=== PATIENT | female | born 1965 | race Caucasian/White ===

== ENCOUNTER 2016-06-23 00:06 | Emergency (ER) | payer BC ==
[~2016-06-23] VITALS: Ht 165.1 cm; Wt 72.6 kg
[~2016-06-23 00:06] MED LIST: 'PARAFON FORTE500 M1 PO; AMOXICILLIN500 M2 PO; AUGMENTIN 875875 MG PO; BIAXIN500 MG PO; BRIN10TA PO; CELEXA20 MG PO; CLARITIN10 M1 PO; CYCLOBENZAPRINE10 MG PO; DAYPRO600 M1 PO; FIORICET 325 MG1 TAB PO; FLEXERIL10 MG PO; IBU-8800 MG PO; LISINOPRIL-HYDR1 TA4 PO; LISINOPRIL20 MG PO; MOTRIN800 MG PO; NAPROSYN250 MG PO; NAPROSYN500 MG PO; SIMVASTATIN40 MG PO; TORADOL10 MG PO; TRAZODONE50 MG PO; VITAMIN D50000 I3 PO; ZOFRAN ODT4 MG SL
[2016-06-23 00:24] LABS: BASO # 0.1 10*3/uL (0.0-0.1); BASO % 0.6 % (0.0-1.0); EOS # 0.1 10*3/uL (0.0-0.4); EOS % 1.2 % (1.0-4.0); HEMATOCRIT 40.7 % (37.0-47.0); HEMOGLOBIN 13.7 g/dl (12.0-16.0); LYMPH # 2.8 10*3/uL (1.3-4.4); LYMPH % 32.6 % (27.0-41.0); MEAN CELL VOLUME 93.1 fl (81.0-99.0); MEAN CORPUSCULAR HGB 31.4 pg (27.0-31.0); MEAN CORPUSCULAR HGB CONC 33.7 g/dl (33.0-37.0); MONO # 0.7 10*3/uL (0.1-1.0); MONO % 8.3 % (3.0-9.0); NEUT % 57.1 % (47.0-73.0); PLATELET COUNT AUTOMATED 222 10*3/uL (130-400); RED BLOOD COUNT 4.37 10*6/uL (4.10-5.10); RED CELL DISTRI WIDTH 12.5 % (0-14.5); WHITE BLOOD COUNT 8.7 10*3/uL (4.8-10.8)
[2016-06-23] MEDS ORDERED: ZOCOR40 MG PO (00:29)
[2016-06-23] MEDS ORDERED: LISINOPRIL AND1 TAB PO (00:30)
[2016-06-23 00:45] LABS: ALBUMIN 3.4 gm/dl (3.1-4.5); ALKALINE PHOSPHATASE 91 U/L (45-117); BILIRUBIN, TOTAL 0.1 mg/dl (0.2-1.0); BUN 17 mg/dl (7-24); CARBON DIOXIDE 27 mmol/L (21-32); CHLORIDE 106 mmol/L (98-107); EST GLOM FILT AFRICAN AMERICAN > 60 ml/min; GLUCOSE 108 mg/dL (65-99); POTASSIUM 3.4 mmol/L (3.5-5.1); SGOT/AST 18 IU/L (3-35); SGPT/ALT 19 U/L (12-78); SODIUM 142 mmol/L (136-145); TOTAL PROTEIN 6.3 gm/dL (6.4-8.2)
[2016-06-23 01:31] LABS: INTERNATIONAL NORM RATIO 0.9 (2.0-3.5); PROTHROMBIN TIME 9.6 SECONDS (9.0-12.4)
== END 2016-06-23 06:36 | disposition short-term general hospital (02) ==
LOC: ED 00:06
PROVIDERS: Emergency Medicine Emergency Medical Services
DX: I21.4 Non-ST elevation (NSTEMI) myocardial infarction (principal); E78.5 Hyperlipidemia, unspecified; I10 Essential (primary) hypertension; F32.9 Major depressive disorder, single episode, unspecified; Z79.899 Other long term (current) drug therapy

== ENCOUNTER → 2016-08-20 | Outpatient (CLI) | payer BC ==
[~2016-08-20] MED LIST changes: +LISINOPRIL AND1 TAB PO; +ZOCOR40 MG PO
[2016-08-20 08:31] LABS: BUN 10 mg/dl (7-24); CARBON DIOXIDE 29 mmol/L (21-32); CHLORIDE 106 mmol/L (98-107); EST GLOM FILT AFRICAN AMERICAN > 60 ml/min; GLUCOSE 83 mg/dL (65-99); POTASSIUM 3.6 mmol/L (3.5-5.1); SODIUM 145 mmol/L (136-145)
== END | disposition home or self-care (01) ==
LOC: LAB 07:46
PROVIDERS: Internal Medicine Cardiovascular Disease
DX: I21.4 Non-ST elevation (NSTEMI) myocardial infarction (principal)

== ENCOUNTER → 2016-09-28 | Outpatient (CLI) | payer BC ==
[2016-09-28 16:16] LABS: BUN 14 mg/dl (7-24); CARBON DIOXIDE 28 mmol/L (21-32); CHLORIDE 103 mmol/L (98-107); EST GLOM FILT AFRICAN AMERICAN > 60 ml/min; GLUCOSE 94 mg/dL (65-99); POTASSIUM 3.3 mmol/L (3.5-5.1); SODIUM 138 mmol/L (136-145)
== END | disposition home or self-care (01) ==
LOC: LAB 15:31
PROVIDERS: Internal Medicine Cardiovascular Disease
DX: I10 Essential (primary) hypertension (principal)

== ENCOUNTER 2016-10-12 10:44 | Emergency (ER) | payer BC ==
[~2016-10-12] VITALS: Ht 165.1 cm; Wt 77.1 kg
[2016-10-12] MEDS ORDERED: LISINOPRIL20 MG PO (11:08)
[2016-10-12] MEDS ORDERED: POTASSIUM CHLO10 ME4 PO (11:08)
[2016-10-12] MEDS ORDERED: HYDROCHLOROTH12.5 M2 PO (11:08)
[2016-10-12] MEDS ORDERED: ATORVASTATIN CA40 M1 PO (11:09)
[2016-10-12] MEDS ORDERED: Lopressor25 MG PO (11:10)
[2016-10-12] MEDS ORDERED: ASPIRIN81 M1 PO (11:11)
[2016-10-12 11:19] LABS: BILIRUBIN NEGATIVE (NEGATIVE); BLOOD NEGATIVE (NEGATIVE); COLOR YELLOW (YELLOW); GLUCOSE NEGATIVE (NEGATIVE); KETONE NEGATIVE (NEGATIVE); LEUKO ESTERASE 1+ (NEGATIVE); NITRITE NEGATIVE (NEGATIVE); PROTEIN NEGATIVE (NEGATIVE); UROBILINOGEN 0.2 E.U./dl (0.2-1.0)
[2016-10-12 11:28] LABS: CLARITY SL CLOUDY (CLEAR)
[2016-10-12 11:29] LABS: BACTERIA 2+; URINE REFLEX COMMENT YES (NO); WBC 31-40 wbc/hpf (0-5)
[2016-10-12] MEDS ORDERED: HYDROCODONE BIT1 T11 PO (11:39)
[2016-10-12] MEDS ORDERED: PREDNISONE20 M1 PO (11:39)
[2016-10-13] MEDS ORDERED: CIPRO500 MG PO (19:20)
== END 2016-10-12 12:30 | disposition home or self-care (01) ==
LOC: ED 10:44
PROVIDERS: Emergency Medicine
DX: M54.32 Sciatica, left side (principal); N39.0 Urinary tract infection, site not specified; F17.200 Nicotine dependence, unspecified, uncomplicated; F32.9 Major depressive disorder, single episode, unspecified; Z79.82 Long term (current) use of aspirin

== ENCOUNTER 2016-10-13 16:56 | Emergency (ER) | payer BC ==
[~2016-10-13] VITALS: Wt 77.1 kg
[~2016-10-13 16:56] MED LIST changes: +ASPIRIN81 M1 PO; +ATORVASTATIN CA40 M1 PO; +HYDROCHLOROTH12.5 M2 PO; +HYDROCODONE BIT1 T11 PO; +Lopressor25 MG PO; +POTASSIUM CHLO10 ME4 PO; +PREDNISONE20 M1 PO
[2016-10-13 17:49] LABS: BASO % 0.1 % (0.0-1.0); HEMATOCRIT 41.1 % (37.0-47.0); LYMPH # 2.9 10*3/uL (1.3-4.4); LYMPH % 20.8 % (27.0-41.0); MEAN CELL VOLUME 90.7 fl (81.0-99.0); MEAN CORPUSCULAR HGB 30.9 pg (27.0-31.0); MEAN CORPUSCULAR HGB CONC 34.1 g/dl (33.0-37.0); MEAN PLATELET VOLUME 10.4 fl (9.6-12.3); NEUT # 10.2 10*3/uL (2.3-7.9); NEUT % 71.8 % (47.0-73.0); PLATELET COUNT AUTOMATED 258 10*3/uL (130-400); RED BLOOD COUNT 4.53 10*6/uL (4.10-5.10); RED CELL DISTRI WIDTH 12.2 % (0-14.5); WHITE BLOOD COUNT 14.2 10*3/uL (4.8-10.8)
[2016-10-13 18:05] LABS: ALKALINE PHOSPHATASE 105 U/L (45-117); BILIRUBIN, TOTAL 0.3 mg/dl (0.2-1.0); BUN 16 mg/dl (7-24); CARBON DIOXIDE 28 mmol/L (21-32); CHLORIDE 106 mmol/L (98-107); EST GLOM FILT AFRICAN AMERICAN > 60 ml/min; GLUCOSE 90 mg/dL (65-99); POTASSIUM 3.2 mmol/L (3.5-5.1); SGOT/AST 15 IU/L (3-35); SGPT/ALT 22 U/L (12-78); SODIUM 142 mmol/L (136-145); TOTAL PROTEIN 7.2 gm/dL (6.4-8.2)
[2016-10-13 18:57] LABS: BILIRUBIN NEGATIVE (NEGATIVE); BLOOD NEGATIVE (NEGATIVE); CLARITY CLEAR (CLEAR); COLOR YELLOW (YELLOW); GLUCOSE NEGATIVE (NEGATIVE); KETONE NEGATIVE (NEGATIVE); LEUKO ESTERASE TRACE (NEGATIVE); NITRITE NEGATIVE (NEGATIVE); PROTEIN NEGATIVE (NEGATIVE); SPECIFIC GRAVITY >= 1.030 (1.005-1.030); UROBILINOGEN 0.2 E.U./dl (0.2-1.0)
[2016-10-13 19:05] LABS: EPITHELIAL CELLS 15-20; RBC 0-2 rbc/hpf (0-2)
[2016-10-13 19:06] LABS: BACTERIA 2+; URINE REFLEX COMMENT YES (NO)
[2016-10-13] MEDS ORDERED: CIPRO500 MG PO (19:20)
== END 2016-10-13 19:20 | disposition home or self-care (01) ==
LOC: ED 16:56
PROVIDERS: Physician Assistant
DX: N30.00 Acute cystitis without hematuria (principal); T37.0X5A Adverse effect of sulfonamides, initial encounter; F17.200 Nicotine dependence, unspecified, uncomplicated; Z79.82 Long term (current) use of aspirin; Y92.9 Unspecified place or not applicable

== ENCOUNTER 2016-11-01 17:07 | Emergency (ER) | payer BC ==
[~2016-11-01] VITALS: Wt 77.1 kg
[~2016-11-01 17:07] MED LIST changes: +CIPRO500 MG PO
== END 2016-11-01 19:30 | disposition home or self-care (01) ==
LOC: ED 17:07
DX: S50.01XA Contusion of right elbow, initial encounter (principal); F17.200 Nicotine dependence, unspecified, uncomplicated; Z88.8 Allergy status to other drugs, medicaments and biological substances; W22.8XXA Striking against or struck by other objects, initial encounter; Y93.89 Activity, other specified; Y92.9 Unspecified place or not applicable; Y99.9 Unspecified external cause status

== ENCOUNTER 2017-03-27 12:27 | Emergency (ER) | payer BC ==
[~2017-03-27] VITALS: Ht 165.1 cm; Wt 81.6 kg
[2017-03-27] MEDS ORDERED: NORCO 5-325 TA1 EACH PO (13:40)
== END 2017-03-28 13:59 | disposition home or self-care (01) ==
LOC: ED 12:27
DX: M25.462 Effusion, left knee (principal); F17.200 Nicotine dependence, unspecified, uncomplicated; Z98.890 Other specified postprocedural states; Z98.51 Tubal ligation status; Z79.82 Long term (current) use of aspirin; Z79.899 Other long term (current) drug therapy; Z88.6 Allergy status to analgesic agent; X50.1XXA Overexertion from prolonged static or awkward postures, initial encounter; Y93.89 Activity, other specified; Y92.211 Elementary school as the place of occurrence of the external cause; Y99.9 Unspecified external cause status

== ENCOUNTER → 2017-05-04 | Outpatient (CLI) | payer BC ==
[~2017-05-04] MED LIST changes: +NORCO 5-325 TA1 EACH PO
== END | disposition home or self-care (01) ==
LOC: US 15:54
DX: M79.89 Other specified soft tissue disorders (principal)

== ENCOUNTER 2017-11-01 21:29 | Emergency (ER) | payer BC ==
[~2017-11-01] VITALS: Ht 165.1 cm; Wt 76.2 kg
[2017-11-01] MEDS ORDERED: CORTIZONE 1028 GM T (21:41)
[2017-11-01] MEDS ORDERED: BENADRYL25 M2 PO (21:41)
== END 2017-11-01 22:00 | disposition home or self-care (01) ==
LOC: ED 21:29
DX: L23.7 Allergic contact dermatitis due to plants, except food (principal); Z98.51 Tubal ligation status; Z88.8 Allergy status to other drugs, medicaments and biological substances; Z79.899 Other long term (current) drug therapy; Z79.82 Long term (current) use of aspirin

== ENCOUNTER 2018-05-10 21:42 | Inpatient (IN) | payer OTHER ==
[~2018-05-10] VITALS: Ht 167.6 cm; Wt 75.7 kg
--- NOTE | ~2018-05-10 | O ---
[place], [place] OPERATIVE NOTE NAME: MARICEL BRINK UNIT #: [id number] ROOM: 415 DOCTOR: NORAH MYRICK MD BIRTHDATE: [birth year] DOS: 05/12/2018 HISTORY OF PRESENT ILLNESS: The patient is a 53-year-old patient who presented with chief complaint of persistent epigastric distress, noncardiac ____ dyspepsia, aggressive nicotine consumer, history of ETOH as well. Cardiac workup has been all negative. PROCEDURE: Today's procedure part of investigation is panendoscopy plus biopsy and photographic series. PREMEDICATION: Propofol. SCOPE: Olympus forward-viewing gastroscope Q10 video. REPORT: After putting the patient in left lateral position and application of lubricant to the scope, the scope was introduced. Thereafter, under direct visualization, advanced through the length of esophagus without difficulty. Small hiatal hernia was noticed. Gastritis was appreciated. Antral biopsy was obtained. Duodenum was entered. Duodenitis seen. Multiple small duodenal ulcers appreciated, photographed. Air was suctioned out. The patient was extubated, tolerated the procedure well. IMPRESSION: Duodenal ulcers, small, multiple; gastritis, moderate; hiatal hernia about 1.5 size. PLAN AND DISCUSSION: To abstain from smoking. Avoiding carbonated sodas. No alcohol, Protonix 40 mg daily. Gaviscon Extra Strength 1 at bedtime. Elevation of the head of the bed 10 inches all time. Follow up as outpatient. I am also going to organize a colonic screening on her as outpatient. NORAH MYRICK MD CM:OPRECORD:OPERATIVE NOTE [id number] NORAH MYRICK MD 05/12/18 1744 interface
--- NOTE | ~2018-05-10 | EKG ---
[place], [place] ELECTROCARDIOGRAM REPORT NAME: MARICEL BRINK UNIT #: [id number] ROOM: 415 DOCTOR: EPIPHANY DRAFT REPORT BIRTHDATE: [birth year] [facility] Test Date: 2018-05-11 Test Time: 00:35:31 Pat Name: MARICEL BRINK Department: Room: [facility] Gender: F Supervisor Heat Treating: Carlos Nielsen : 1965 Requested By: BC CARLOS Order Number: [id number] Reading MD: Simón Vicente MD Measurements Intervals [place] Rate: 45 P: 45 [place]: 150 QRS: 68 QRSD: 90 T: 52 QT: 467 QTc: 404 Interpretive Statements Sinus bradycardia Probable left ventricular hypertrophy Borderline T abnormalities, anterior leads Electronically Signed On 05-11-2018 6:52:08 PST by Simón Vicente MD CM:EKGRPT:ELECTROCARDIOGRAM REPORT [id number] BC CARLOS MD EPIPHANY DRAFT REPORT BC CARLOS MD
--- NOTE | ~2018-05-10 | CON ---
[place], [place] REPORT OF CONSULTATION NAME: MARICEL BRINK UNIT #: [id number] ROOM: 415 DOCTOR: NORAH MYRICK MD BIRTHDATE: [birth year] DOS: 05/12/2018 HISTORY OF PRESENT ILLNESS: This young lady is a 52-year-old who has presented with chest pain, which is extensively worked up and cleared by customer service clerk after evaluation and was considered to be a GI symptoms and referred to us for evaluation endoscopically. Her white blood cell was 8, H and H of 12 and 37. INR was 0.9. Chest x-ray was done and no acute abnormality was noticed. Troponin was repeatedly negative. BNP was 200+. Sed rate was 14. Repeated Troponin was unremarkable. Urinalysis with no bacterial growth. EKGs and electrocardiograms repeated evaluations were noticed. PAST MEDICAL HISTORY: Associated with sinusitis, bronchitis, hypertension, lower back pain, depression, and non-STEMI suspected. Chest pain of noncardiac origin and nicotine dependency. PAST SURGICAL HISTORY: None. SOCIAL HISTORY: Aggressive smoker as well as alcohol consumer. ALLERGIES: PREDNISONE. MEDICATIONS: List has been reviewed including aspirin, atorvastatin, lisinopril, metoprolol, and hydrochlorothiazide. REVIEW OF SYSTEMS: HEENT: Denies double vision, blurred vision. RESPIRATORY: Admits some shortness of breath. CARDIOVASCULAR: Denies atypical chest pain. DIGESTIVE SYSTEM: Substernal distress, dyspepsia. PHYSICAL EXAMINATION: GENERAL: COPD, characteristics of ____. HEAD AND NECK: Head normocephalic, nontraumatic. Otherwise no aphthae ulceration or thrush. NECK: Supple, no thyromegaly, no cervical lymphadenopathy. CHEST: Symmetric anatomy, equal expansion. Decreased air entry bilaterally. No wheezes. HEART: Normal sinus rhythm, no gallop, no murmur. ABDOMEN: Soft. No hepato-organomegaly. Bowel sounds present. EXTREMITIES: There is no evidence of cyanosis. Trace pedal edema. NEUROLOGIC: Fully alert, oriented to time, place, and person. IMPRESSION: Noncardiac chest pain, ruling out hiatal hernia or ruling out esophageal ulcers secondary to reflux, and nicotine dependency. Other adjunctive diagnoses including hypertension and depression, have been recognized. PLAN AND DISCUSSION: We are going to organize an endoscopy of upper GI tract. Labs reviewed. Records reviewed. [place], [place] REPORT OF CONSULTATION NAME: MARICEL BRINK UNIT #: [id number] ROOM: 415 DOCTOR: NORAH MYRICK MD BIRTHDATE: [birth year] NORAH MYRICK MD CM:CONSTR:REPORT OF CONSULTATION 1455 05/13/18 0209 interface
--- NOTE | ~2018-05-10 | EKG ---
[place], [place] ELECTROCARDIOGRAM REPORT NAME: MARICEL BRINK UNIT #: [id number] ROOM: 415 DOCTOR: EPIPHANY DRAFT REPORT BIRTHDATE: [birth year] [facility] Test Date: 2018-05-10 Test Time: 21:45:17 Pat Name: MARICEL BRINK Department: Room: 415 Gender: F Long Lines Operator: Jeaneth Payton : 1965 Requested By: BC CARLOS Order Number: [id number] Reading MD: Simón Vicente MD Measurements Intervals [place] Rate: 59 P: 64 [place]: 152 QRS: 69 QRSD: 96 T: 60 QT: 417 QTc: 414 Interpretive Statements Sinus rhythm Probable left ventricular hypertroph Electronically Signed On 05-11-2018 6:51:53 PST by Simón Vicente MD CM:EKGRPT:ELECTROCARDIOGRAM REPORT [id number] BC CARLOS MD EPIPHANY DRAFT REPORT BC CARLOS MD
--- NOTE | ~2018-05-10 | EKG ---
[place], [place] ELECTROCARDIOGRAM REPORT NAME: MARICEL BRINK UNIT #: [id number] ROOM: 415 DOCTOR: EPIPHANY DRAFT REPORT BIRTHDATE: [birth year] [facility] Test Date: 2018-05-11 Test Time: 03:28:09 Pat Name: MARICEL BRINK Department: Room: [facility] Gender: F Retail Loss Prevention Officer: Donna Castillo : 1965 Requested By: BC CARLOS Order Number: [id number] Reading MD: Simón Vicente MD Measurements Intervals [place] Rate: 50 P: 51 [place]: 151 QRS: 69 QRSD: 83 T: 56 QT: 484 QTc: 442 Interpretive Statements Sinus arrhythmia Borderline T abnormalities, anterior leads Electronically Signed On 05-11-2018 6:52:16 PST by Simón Vicente MD CM:EKGRPT:ELECTROCARDIOGRAM REPORT [id number] BC CARLOS MD EPIPHANY DRAFT REPORT BC CARLOS MD
[~2018-05-10 21:42] MED LIST changes: +BENADRYL25 M2 PO; +CORTIZONE 1028 GM T
[2018-05-10 21:47] VITALS: BP 141/76
[2018-05-10 22:02] LABS: BASO # 0.1 10*3/uL (0.0-0.1); BASO % 0.6 % (0.0-1.0); EOS # 0.2 10*3/uL (0.0-0.4); EOS % 2.1 % (1.0-4.0); HEMATOCRIT 37.3 % (37.0-47.0); HEMOGLOBIN 12.7 g/dl (12.0-16.0); LYMPH # 2.9 10*3/uL (1.3-4.4); MEAN CELL VOLUME 93.7 fl (81.0-99.0); MEAN CORPUSCULAR HGB 31.9 pg (27.0-31.0); MEAN PLATELET VOLUME 10.5 fl (9.6-12.3); MONO # 0.7 10*3/uL (0.1-1.0); MONO % 7.5 % (3.0-9.0); NEUT # 4.9 10*3/uL (2.3-7.9); NEUT % 56.6 % (47.0-73.0); PLATELET COUNT AUTOMATED 228 10*3/uL (130-400); RED BLOOD COUNT 3.98 10*6/uL (4.10-5.10); RED CELL DISTRI WIDTH 12.2 % (0-14.5); WHITE BLOOD COUNT 8.7 10*3/uL (4.8-10.8)
[2018-05-10 22:11] LABS: ACT PARTIAL THROMBO TIME 23.1 SECONDS (20.8-31.5); INTERNATIONAL NORM RATIO 0.9 (2.0-3.5)
[2018-05-10 22:20] LABS: ALBUMIN 3.6 gm/dl (3.1-4.5); ALKALINE PHOSPHATASE 102 U/L (45-117); BUN 8 mg/dl (7-24); CHLORIDE 105 mmol/L (98-107); POTASSIUM 3.1 mmol/L (3.5-5.1); SGOT/AST 15 IU/L (3-35); SGPT/ALT 21 U/L (12-78); SODIUM 141 mmol/L (136-145); TOTAL PROTEIN 6.6 gm/dL (6.4-8.2)
[2018-05-10 22:22] LABS: TROPONIN I < 0.015 ng/ml (<0.045)
[2018-05-10 22:39] LABS: BILIRUBIN NEGATIVE (NEGATIVE); BLOOD NEGATIVE (NEGATIVE); CLARITY CLEAR (CLEAR); COLOR YELLOW (YELLOW); GLUCOSE NEGATIVE (NEGATIVE); KETONE NEGATIVE (NEGATIVE); LEUKO ESTERASE 1+ (NEGATIVE); NITRITE NEGATIVE (NEGATIVE); PH 6.5 (5.0-9.0); UROBILINOGEN 0.2 E.U./dl (0.2-1.0)
[2018-05-10 22:50] LABS: EPITHELIAL CELLS 30-35
[2018-05-10 22:51] LABS: BACTERIA TRACE
[2018-05-11] VITALS: BP 139/63
[2018-05-11 03:53] LABS: BASO # 0.1 10*3/uL (0.0-0.1); BASO % 0.6 % (0.0-1.0); EOS # 0.2 10*3/uL (0.0-0.4); EOS % 2.6 % (1.0-4.0); HEMATOCRIT 35.5 % (37.0-47.0); HEMOGLOBIN 12.1 g/dl (12.0-16.0); LYMPH # 2.7 10*3/uL (1.3-4.4); LYMPH % 33.1 % (27.0-41.0); MEAN CELL VOLUME 94.7 fl (81.0-99.0); MEAN CORPUSCULAR HGB 32.3 pg (27.0-31.0); MEAN CORPUSCULAR HGB CONC 34.1 g/dl (33.0-37.0); MEAN PLATELET VOLUME 10.5 fl (9.6-12.3); MONO # 0.6 10*3/uL (0.1-1.0); MONO % 7.9 % (3.0-9.0); NEUT # 4.4 10*3/uL (2.3-7.9); NEUT % 55.5 % (47.0-73.0); PLATELET COUNT AUTOMATED 197 10*3/uL (130-400); RED BLOOD COUNT 3.75 10*6/uL (4.10-5.10); RED CELL DISTRI WIDTH 12.2 % (0-14.5)
[2018-05-11 04:14] LABS: ALBUMIN 3.2 gm/dl (3.1-4.5); ALKALINE PHOSPHATASE 92 U/L (45-117); BUN 8 mg/dl (7-24); CHLORIDE 107 mmol/L (98-107); CHOLESTEROL 93 mg/dL (<200); CREATININE 0.76 mg/dL (0.55-1.02); HDL CHOLESTEROL 29 mg/dl (40-60); LDL CHOLESTEROL 41 mg/dL (9-159); PHOSPHOROUS 3.9 mg/dL (2.5-4.9); POTASSIUM 3.7 mmol/L (3.5-5.1); SGOT/AST 12 IU/L (3-35); SGPT/ALT 15 U/L (12-78); SODIUM 144 mmol/L (136-145); TOTAL PROTEIN 5.9 gm/dL (6.4-8.2); TRIGLYCERIDES 113 mg/dl (<150); VLDL CHOLESTEROL 23 mg/dL (6-40)
[2018-05-11 04:15] LABS: FREE T4 1.01 ng/dl (0.76-1.46)
[2018-05-11 06:41] LABS: VITAMIN D, 25-HYDROXY 25.2 ng/mL (30-100)
[2018-05-11 08:00] VITALS: BP 138/82
[2018-05-11 12:00] VITALS: BP 128/70
[2018-05-11 16:00] VITALS: BP 130/81
[2018-05-11 20:00] VITALS: BP 128/74
[2018-05-12] VITALS: BP 131/71
[2018-05-12 13:00] VITALS: BP 136/86
[2018-05-12 13:49] VITALS: BP 130/77
[2018-05-12 16:13] VITALS: BP 110/68
[2018-05-12 16:28] VITALS: BP 114/70
[2018-05-12 16:43] VITALS: BP 123/72
== END 2018-05-12 17:30 | disposition home or self-care (01) | DRG 313 ==
LOC: ED 21:42 → 4E 23:13 → EDHOLD 23:13 → 4E 23:37
PROVIDERS: Emergency Medicine Emergency Medical Services; Family Medicine
PROC: 0DB78ZX Excision of Stomach, Pylorus, Via Natural or Artificial Opening Endoscopic, Diagnostic (ICD-10-PCS; principal; 2018-05-12)
DX: R07.89 Other chest pain (principal); N30.00 Acute cystitis without hematuria; R00.1 Bradycardia, unspecified; E87.6 Hypokalemia; E83.41 Hypermagnesemia; R73.9 Hyperglycemia, unspecified; I25.10 Atherosclerotic heart disease of native coronary artery without angina pectoris; K29.70 Gastritis, unspecified, without bleeding; K26.9 Duodenal ulcer, unspecified as acute or chronic, without hemorrhage or perforation; K44.9 Diaphragmatic hernia without obstruction or gangrene; R51 Headache; Z71.6 Tobacco abuse counseling; I11.9 Hypertensive heart disease without heart failure; F32.9 Major depressive disorder, single episode, unspecified; E66.3 Overweight; K29.80 Duodenitis without bleeding; F17.210 Nicotine dependence, cigarettes, uncomplicated; E78.5 Hyperlipidemia, unspecified; G89.29 Other chronic pain; M54.41 Lumbago with sciatica, right side; I25.2 Old myocardial infarction; Z95.5 Presence of coronary angioplasty implant and graft; Z88.8 Allergy status to other drugs, medicaments and biological substances; Z98.891 History of uterine scar from previous surgery; Z98.51 Tubal ligation status; Z82.49 Family history of ischemic heart disease and other diseases of the circulatory system; Z81.8 Family history of other mental and behavioral disorders; Z80.9 Family history of malignant neoplasm, unspecified; Z79.82 Long term (current) use of aspirin; Z79.899 Other long term (current) drug therapy; Z68.26 Body mass index [BMI] 26.0-26.9, adult

== ENCOUNTER → 2018-07-10 | Outpatient (CLI) | payer OTHER | END | disposition home or self-care (01) | LOC: RAD 15:52 | DX: M51.36 Other intervertebral disc degeneration, lumbar region (principal) ==

== ENCOUNTER → 2019-06-26 | Outpatient (CLI) | payer OTHER | END | disposition home or self-care (01) | LOC: LAB 08:09 | DX: I10 Essential (primary) hypertension (principal) ==

== ENCOUNTER → 2019-11-20 | Outpatient (CLI) | payer OTHER | END | disposition home or self-care (01) | LOC: MAMMO 15:19 | DX: Z12.31 Encounter for screening mammogram for malignant neoplasm of breast (principal) ==

== ENCOUNTER → 2020-04-23 | Outpatient (CLI) | payer OTHER ==
[~2020-04-23] MED LIST changes: +CEPHALEXIN500 M1 PO; +NAPROXEN250 MG PO; +TYLENOL325 M1 PO
== END | disposition home or self-care (01) ==
LOC: RAD 11:54
PROVIDERS: ATTEND Internal Medicine
DX: M54.9 Dorsalgia, unspecified (principal)

== ENCOUNTER 2020-06-12 06:12 | Emergency (ER) | payer OTHER ==
[~2020-06-12] VITALS: Ht 167.6 cm; Wt 79.8 kg
[~2020-06-12 06:12] MED LIST changes: -CEPHALEXIN500 M1 PO; -NAPROXEN250 MG PO; -TYLENOL325 M1 PO
[2020-06-12] MEDS ORDERED: TYLENOL325 M1 PO (09:22)
[2020-06-12] MEDS ORDERED: CEPHALEXIN500 M1 PO (09:22)
[2020-06-12] MEDS ORDERED: NAPROXEN250 MG PO (09:22)
== END 2020-06-12 10:15 | disposition home or self-care (01) ==
LOC: ED 06:12
DX: S62.634B Displaced fracture of distal phalanx of right ring finger, initial encounter for open fracture (principal); I25.10 Atherosclerotic heart disease of native coronary artery without angina pectoris; I10 Essential (primary) hypertension; F17.200 Nicotine dependence, unspecified, uncomplicated; Z88.8 Allergy status to other drugs, medicaments and biological substances; Z79.899 Other long term (current) drug therapy; Z79.82 Long term (current) use of aspirin; W31.89XA Contact with other specified machinery, initial encounter; Y93.89 Activity, other specified; Y92.89 Other specified places as the place of occurrence of the external cause; Y99.8 Other external cause status

== ENCOUNTER 2020-08-26 21:31 | Emergency (ER) | payer OTHER ==
[~2020-08-26] VITALS: Ht 167.6 cm; Wt 81.6 kg
[~2020-08-26 21:31] MED LIST changes: +CEPHALEXIN500 M1 PO; +NAPROXEN250 MG PO; +TYLENOL325 M1 PO
== END 2020-08-26 22:12 | disposition home or self-care (01) ==
LOC: ED 21:31
DX: S05.02XA Injury of conjunctiva and corneal abrasion without foreign body, left eye, initial encounter (principal); I10 Essential (primary) hypertension; Z88.8 Allergy status to other drugs, medicaments and biological substances; Z79.899 Other long term (current) drug therapy; Z79.82 Long term (current) use of aspirin; Z98.890 Other specified postprocedural states; Z98.51 Tubal ligation status; X58.XXXA Exposure to other specified factors, initial encounter; Y93.89 Activity, other specified; Y92.89 Other specified places as the place of occurrence of the external cause; Y99.8 Other external cause status

== ENCOUNTER 2020-12-15 13:12 | Inpatient (IN) | payer OTHER ==
[~2020-12-15] VITALS: Ht 167.6 cm; Wt 81.6 kg
[2020-12-15 13:43] LABS: BASO # 0.1 10*3/uL (0.0-0.1); BASO % 0.6 % (0.0-1.0); EOS # 0.1 10*3/uL (0.0-0.4); EOS % 1.6 % (1.0-4.0); HEMATOCRIT 41.6 % (37.0-47.0); LYMPH # 1.2 10*3/uL (1.3-4.4); LYMPH % 14.7 % (27.0-41.0); MEAN CELL VOLUME 96.5 fl (81.0-99.0); MEAN CORPUSCULAR HGB 31.1 pg (27.0-31.0); MEAN CORPUSCULAR HGB CONC 32.2 g/dl (33.0-37.0); MEAN PLATELET VOLUME 10.2 fl (9.6-12.3); MONO # 0.5 10*3/uL (0.1-1.0); NEUT # 6.2 10*3/uL (2.3-7.9); NEUT % 76.6 % (47.0-73.0); PLATELET COUNT AUTOMATED 242 10*3/uL (130-400); RED BLOOD COUNT 4.31 10*6/uL (4.10-5.10); RED CELL DISTRI WIDTH 12.7 % (0-14.5)
[2020-12-15 13:50] VITALS: BP 130/86
[2020-12-15 14:00] LABS: ALBUMIN 3.5 gm/dl (3.1-4.5); ALKALINE PHOSPHATASE 90 U/L (45-117); BUN 11 mg/dl (7-24); CHLORIDE 106 mmol/L (98-107); CREATININE 0.88 mg/dL (0.55-1.02); POTASSIUM 3.5 mmol/L (3.5-5.1); SGOT/AST 13 IU/L (3-35); SGPT/ALT 20 U/L (12-78); SODIUM 138 mmol/L (136-145); TOTAL PROTEIN 6.7 gm/dL (6.4-8.2)
[2020-12-15 14:01] LABS: TROPONIN I < 0.015 ng/ml (<0.045)
[2020-12-15 16:30] VITALS: BP 153/91
[2020-12-15 18:57] VITALS: BP 133/92
[2020-12-15 22:50] VITALS: BP 119/74
[2020-12-15 23:57] VITALS: BP 127/79
[2020-12-16] MEDS ORDERED: BUPROPION HCL150 M3 PO (00:50)
[2020-12-16] MEDS ORDERED: BUSPAR15 MG PO (00:51)
[2020-12-16] MEDS ORDERED: CITALOPRAM HYDR40 MG PO (00:53)
[2020-12-16] MEDS ORDERED: LORAZEPAM1 MG PO (00:53)
[2020-12-16 06:32] VITALS: BP 147/81
[2020-12-16 08:00] VITALS: BP 136/84
[2020-12-16 08:13] VITALS: BP 139/77
[2020-12-16 12:00] VITALS: BP 121/76
[2020-12-16] MEDS ORDERED: NAPROSYN500 MG PO (15:59)
[2020-12-16] MEDS ORDERED: PROTONIX40 MG PO (15:59)
== END 2020-12-16 16:48 | disposition home or self-care (01) | DRG 313 ==
LOC: ED 13:12 → EDHOLD 15:09 → 4E 15:09
PROVIDERS: Emergency Medicine; ADMIT Internal Medicine; ATTEND Internal Medicine
PROC: 4A02XM4 Measurement of Cardiac Total Activity, External Approach (ICD-10-PCS; principal; 2020-12-16)
PROC: 3E073KZ Introduction of Other Diagnostic Substance into Coronary Artery, Percutaneous Approach (ICD-10-PCS; 2020-12-16)
DX: R07.89 Other chest pain (principal); R73.9 Hyperglycemia, unspecified; E83.41 Hypermagnesemia; Z71.6 Tobacco abuse counseling; R00.1 Bradycardia, unspecified; F32.9 Major depressive disorder, single episode, unspecified; F17.200 Nicotine dependence, unspecified, uncomplicated; F19.90 Other psychoactive substance use, unspecified, uncomplicated; I25.10 Atherosclerotic heart disease of native coronary artery without angina pectoris; K21.9 Gastro-esophageal reflux disease without esophagitis; I10 Essential (primary) hypertension; Z95.5 Presence of coronary angioplasty implant and graft; Z82.5 Family history of asthma and other chronic lower respiratory diseases; Z79.82 Long term (current) use of aspirin; Z79.899 Other long term (current) drug therapy

== ENCOUNTER → 2020-12-19 | Outpatient (CLI) | payer OTHER ==
[~2020-12-19] MED LIST changes: +BUPROPION HCL150 M3 PO; +BUSPAR15 MG PO; +CITALOPRAM HYDR40 MG PO; +LORAZEPAM1 MG PO; +PROTONIX40 MG PO
[2020-12-19 14:48] LABS: BUN 15 mg/dl (7-24); CHLORIDE 108 mmol/L (98-107); CREATININE 0.79 mg/dL (0.55-1.02); FREE T4 0.93 ng/dl (0.76-1.46); POTASSIUM 3.6 mmol/L (3.5-5.1); SODIUM 137 mmol/L (136-145)
[2020-12-19 14:54] LABS: THYROID STIM HORMONE (HS) 0.424 uIU/ml (0.358-4.75)
[2020-12-19 15:39] LABS: VITAMIN D, 25-HYDROXY 46.2 ng/mL (30-100)
== END | disposition home or self-care (01) ==
LOC: LAB 13:56
PROVIDERS: ATTEND Internal Medicine
DX: R20.0 Anesthesia of skin (principal)

== ENCOUNTER 2021-04-24 16:43 | Emergency (ER) | payer OTHER | END 2021-04-24 18:34 | disposition left against medical advice (07) | LOC: ED 16:43 | DX: Z53.21 Procedure and treatment not carried out due to patient leaving prior to being seen by health care provider (principal) ==

== ENCOUNTER → 2021-05-25 | Outpatient (CLI) | payer OTHER | END | disposition home or self-care (01) | LOC: COVID19 17:10 | PROVIDERS: ATTEND Student in an Organized Health Care Education/Training Program | DX: U07.1 COVID-19 (principal) ==

== ENCOUNTER 2021-06-01 14:15 | Emergency (ER) | payer OTHER ==
[2021-06-01 20:01] LABS: BASO % 0.2 % (0.0-1.0); EOS % 0.1 % (1.0-4.0); HEMATOCRIT 42.8 % (37.0-47.0); LYMPH # 1.4 10*3/uL (1.3-4.4); LYMPH % 16.8 % (27.0-41.0); MEAN CELL VOLUME 89.2 fl (81.0-99.0); MEAN CORPUSCULAR HGB 30.4 pg (27.0-31.0); MEAN CORPUSCULAR HGB CONC 34.1 g/dl (33.0-37.0); MEAN PLATELET VOLUME 9.4 fl (9.6-12.3); MONO # 0.4 10*3/uL (0.1-1.0); MONO % 5.1 % (3.0-9.0); NEUT # 6.3 10*3/uL (2.3-7.9); NEUT % 77.6 % (47.0-73.0); PLATELET COUNT AUTOMATED 338 10*3/uL (130-400); RED CELL DISTRI WIDTH 12.2 % (0-14.5); WHITE BLOOD COUNT 8.2 10*3/uL (4.8-10.8)
[2021-06-01 20:22] LABS: ALBUMIN 3.9 gm/dl (3.1-4.5); ALKALINE PHOSPHATASE 97 U/L (45-117); BUN 15 mg/dl (7-24); CHLORIDE 107 mmol/L (98-107); CREATININE 0.76 mg/dL (0.55-1.02); SGOT/AST 16 IU/L (3-35); SGPT/ALT 22 U/L (12-78); SODIUM 140 mmol/L (136-145); TOTAL PROTEIN 7.4 gm/dL (6.4-8.2)
== END 2021-06-01 21:10 | disposition home or self-care (01) ==
LOC: ED 14:15
PROVIDERS: Internal Medicine
DX: U07.1 COVID-19 (principal); E87.6 Hypokalemia; Z88.8 Allergy status to other drugs, medicaments and biological substances; Z79.899 Other long term (current) drug therapy; Z79.82 Long term (current) use of aspirin

== ENCOUNTER → 2021-06-24 | Outpatient (CLI) | payer OTHER | END | disposition home or self-care (01) | LOC: COVID19 15:28 | PROVIDERS: ATTEND Family Medicine | DX: Z20.822 Contact with and (suspected) exposure to COVID-19 (principal) ==

== ENCOUNTER 2023-03-06 13:47 | Emergency (ER) | payer OTHER ==
[~2023-03-06] VITALS: Ht 165.1 cm; Wt 75.7 kg
[~2023-03-06 13:47] MED LIST changes: +FUROSEMIDE20 M1 PO; +GABAPENTIN600 MG PO; +MORPHINE SULFAT15 MG PO; +OXYBUTYNIN10 MG PO
[2023-03-06] MEDS ORDERED: METHOCARBAMOL1000 MG PO (14:50)
[2023-03-06] MEDS ORDERED: TRAMADOL HCL50 MG PO (14:50)
== END 2023-03-06 15:01 | disposition home or self-care (01) ==
LOC: ED 13:47
DX: M19.09 Primary osteoarthritis, other specified site (principal); M54.50 Low back pain, unspecified; R06.02 Shortness of breath; I25.10 Atherosclerotic heart disease of native coronary artery without angina pectoris; I10 Essential (primary) hypertension; E78.5 Hyperlipidemia, unspecified; Z88.8 Allergy status to other drugs, medicaments and biological substances; Z98.51 Tubal ligation status; Z98.890 Other specified postprocedural states; Z87.442 Personal history of urinary calculi; Z90.710 Acquired absence of both cervix and uterus; F17.290 Nicotine dependence, other tobacco product, uncomplicated

== ENCOUNTER → 2023-09-13 | Outpatient (CLI) | payer OTHER ==
[~2023-09-13] MED LIST changes: +CYMBALTA60 MG PO; +METHOCARBAMOL1000 MG PO; +MONTELUKAST SOD10 MG PO; +TRAMADOL HCL50 MG PO; +VITAMIN D250 MC1 PO
== END | disposition home or self-care (01) ==
LOC: MAMMO 02:33
PROVIDERS: ATTEND Internal Medicine
DX: Z12.31 Encounter for screening mammogram for malignant neoplasm of breast (principal)

== ENCOUNTER 2023-11-28 13:55 | Emergency (ER) | payer OTHER ==
[~2023-11-28] VITALS: Wt 77.6 kg
[2023-11-28] MEDS ORDERED: AMOX-CLAV 875-1 EACH PO (14:21)
== END 2023-11-28 14:34 | disposition home or self-care (01) ==
LOC: ED 13:55
DX: H66.91 Otitis media, unspecified, right ear (principal); I10 Essential (primary) hypertension; F17.200 Nicotine dependence, unspecified, uncomplicated; Z88.8 Allergy status to other drugs, medicaments and biological substances; Z79.899 Other long term (current) drug therapy; Z79.82 Long term (current) use of aspirin; Z98.890 Other specified postprocedural states; Z98.51 Tubal ligation status

== ENCOUNTER 2024-06-25 15:51 | Emergency (ER) | payer OTHER ==
[~2024-06-25] VITALS: Ht 167.6 cm; Wt 75.9 kg
[~2024-06-25 15:51] MED LIST changes: +AMOX-CLAV 875-1 EACH PO
[2024-06-25 17:01] LABS: BASO % 0.5 % (0.0-1.0); EOS % 0.4 % (1.0-4.0); HEMATOCRIT 42.4 % (37.0-47.0); MEAN CORPUSCULAR HGB 30.6 pg (27.0-31.0); MEAN CORPUSCULAR HGB CONC 33.3 g/dl (33.0-37.0); MEAN PLATELET VOLUME 10.2 fl (9.6-12.3); MONO # 0.6 10*3/uL (0.1-1.0); MONO % 7.2 % (3.0-9.0); NEUT # 6.4 10*3/uL (2.3-7.9); NEUT % 74.8 % (47.0-73.0); PLATELET COUNT AUTOMATED 226 10*3/uL (130-400); RED BLOOD COUNT 4.61 10*6/uL (4.10-5.10); RED CELL DISTRI WIDTH 12.5 % (0-14.5); WHITE BLOOD COUNT 8.5 10*3/uL (4.8-10.8)
[2024-06-25 17:22] LABS: BUN 11 mg/dl (9-23); CHLORIDE 103 mmol/L (98-107); POTASSIUM 3.5 mmol/L (3.4-5.1)
[2024-06-25 17:24] LABS: BILIRUBIN Negative (Negative); BLOOD Negative (Negative); CLARITY Clear (Clear); COLOR Yellow (Yellow); GLUCOSE Negative (Negative); KETONE Negative (Negative); LEUKO ESTERASE Negative (Negative); NITRITE Negative (Negative); PH 5.5 (4.5-8.0); UROBILINOGEN 0.2 E.U./dl (0.0-1.0)
[2024-06-25 17:33] LABS: BACTERIA 1+
[2024-06-25] MEDS ORDERED: AVPAK AZITHROM250 M1 PO (18:57)
[2024-06-25] MEDS ORDERED: AZITHROMYCIN 250 MG TAB PO ONE (19:05)
== END 2024-06-25 19:04 | disposition home or self-care (01) ==
LOC: ED 15:51
PROVIDERS: Nurse Practitioner Family
DX: J40 Bronchitis, not specified as acute or chronic (principal); Z20.822 Contact with and (suspected) exposure to COVID-19; I10 Essential (primary) hypertension; E78.5 Hyperlipidemia, unspecified; K21.9 Gastro-esophageal reflux disease without esophagitis; I25.2 Old myocardial infarction; I25.10 Atherosclerotic heart disease of native coronary artery without angina pectoris; F32.A Depression, unspecified; F17.210 Nicotine dependence, cigarettes, uncomplicated; Z88.8 Allergy status to other drugs, medicaments and biological substances; Z79.899 Other long term (current) drug therapy; Z79.82 Long term (current) use of aspirin; Z98.890 Other specified postprocedural states

== ENCOUNTER → 2025-04-15 | Outpatient (CLI) | payer OTHER, MEDICAID ==
[~2025-04-15] MED LIST changes: +AVPAK AZITHROM250 M1 PO
== END | disposition home or self-care (01) ==
LOC: MAMMO 14:00 → US 14:30
PROVIDERS: ATTEND Internal Medicine
DX: Z12.31 Encounter for screening mammogram for malignant neoplasm of breast (principal); I73.9 Peripheral vascular disease, unspecified; M25.862 Other specified joint disorders, left knee; R92.313 Mammographic fatty tissue density, bilateral breasts